=== PATIENT | male | born 1975 | race Caucasian/White ===

== ENCOUNTER 2016-07-12 08:00 | Outpatient (CLI) | payer OTHER | END 2016-07-12 23:59 | DX: N52.9 Male erectile dysfunction, unspecified (principal) ==

== ENCOUNTER 2017-06-12 08:00 | Outpatient (CLI) | payer OTHER ==
[2017-06-12 18:55] LABS: EOSINOPHILS % (AUTO) 2.2 %; HGB - HEMOGLOBIN 15.1 g/dL (14.0-18.0); LYMPHOCYTES % (AUTO) 21.5 %; MEAN CORPUSCULAR HGB CONC 32.9 g/dL (32.0-36.0); MEAN CORPUSCULAR VOLUME 91.3 fL (80.0-94.0); MEAN PLATELET VOLUME 9.8 fL (7.4-11.4); MONOCYTES % (AUTO) 6.1 %; NEUTROPHILS % (AUTO) 69.2 %; RED BLOOD COUNT 5.04 10^6/uL (4.70-6.10); RED CELL DISTRIBUTION WIDTH 13.2 % (12.0-15.0); UNCORRECTED WHITE BLOOD COUNT 8.3 x10^3/uL; WHITE BLOOD COUNT 8.3 x10^3/uL (4.8-10.8)
[2017-06-12 19:01] LABS: BAND NEUTROPHILS % (MANUAL) 0 %
[2017-06-12 19:17] LABS: ALBUMIN/GLOBULIN RATIO 1.4 (1.0-2.2); BILIRUBIN,TOTAL 0.4 mg/dL (0.2-1.0); BUN - BLOOD UREA NITROGEN 18 mg/dL (6-20); CALCIUM 9.4 mg/dL (8.5-10.3); CARBON DIOXIDE - CO2 23 mmol/L (21-32); CHLORIDE 107 mmol/L (101-111); CHOL/HDL RATIO 3.8 (<5.0); CHOLESTEROL 192 mg/dL; CREATININE 1.1 mg/dL (0.6-1.2); GFR - MDRD 73 (>89); GLUCOSE 92 mg/dL (70-100); HDL CHOLESTEROL 50 mg/dL; LDL/HDL RATIO 2.5 (<3.6); POTASSIUM 4.5 mmol/L (3.5-5.0); SODIUM 140 mmol/L (135-145); TOTAL PROTEIN 7.3 g/dL (6.7-8.2); TRIGLYCERIDES 92 mg/dL; VLDL CHOLESTEROL 18 mg/dL
[2017-06-12 19:33] LABS: EOSINOPHILS % (MANUAL) 2 %; LYMPHOCYTES % (MANUAL) 22 %; NEUTROPHILS % (MANUAL) 73 %; NP AUTO DIFFERENTIAL? YES; NP MAN DIFFERENTIAL? NO; PLATELET ESTIMATE, MANUAL NORMAL (130-450,000) (NORMAL); PLATELET MORPHOLOGY NORMAL APPEARANCE (NORMAL); TOTAL CELLS COUNTED 100
== END 2017-06-12 08:01 | disposition home or self-care (01) ==
LOC: LAB.WCP 08:00
PROVIDERS: ATTEND Physician Assistant Medical
DX: Z00.00 Encounter for general adult medical examination without abnormal findings (principal); Z12.5 Encounter for screening for malignant neoplasm of prostate
CPT/HCPCS: 36415; 80050; 80061; 84153

== ENCOUNTER 2018-03-06 09:38 | Day surgery (SDC) | payer OTHER ==
--- NOTE | 2018-03-06 11:23 | ED Physician Documentation ---
PD HPI LOWER EXT INJURY - Stated complaint Stated Complaint: LOWER LEFT LEG PX - Chief complaint Chief Complaint: Ext Problem - History obtained from History obtained from: Patient - History of Present Illness PD HPI LOW EXT INJURY LOCATION: Left, Lower leg, Ankle Type of injury: Fall (He injured himself on February 20 with a twisting fall of the ankle and had pain in the lower calf and heel. He was seen by his primary care and placed in a orthopedic boot. They are working on a referral for imaging. Diagnosis was Achilles injury. He has been walking with the boot and using some ibuprofen several times a day. He states it still hurts when he walks. Today he slid on some wet [place] with his injured foot extending out forward. He states it is hurting more now. He denies any other new injury.) Where injury occurred: Work Timing - onset: How many weeks ago (initial injury with worsening symptoms today) Timing - duration: Weeks Timing - details: Abrupt onset, Still present Worsened by: Moving, Palpating, Other (walking, even in boot) Associated symptoms: Weakness (for pushing foot down, since the initial injury.). No: Swelling, Discolored Contributing factors: No: Anticoagulated, Prior ortho surgery Similar symptoms before: Has not had sx before Recently seen: Clinic (after initial injury, seen by PCP) Review of Systems Constitutional: denies: Fever, Chills Nose: denies: Rhinorrhea / runny nose, Congestion Throat: denies: Sore throat Cardiac: denies: Chest pain / pressure, Palpitations Respiratory: denies: Dyspnea, Cough GI: denies: Abdominal Pain, Vomiting, Diarrhea Musculoskeletal: denies: Neck pain, Back pain Neurologic: reports: Focal weakness (left ankle for plantarflexion) Immunocompromised: denies: Immunocompromised PD PAST MEDICAL HISTORY - Past Medical History Past Medical History: Yes Cardiovascular: None Respiratory: None Neuro: None Endocrine/Autoimmune: None Psych: Depression - Past Surgical History Past Surgical History: Yes - Present Medications Home Medications: Ambulatory Orders Medication Instructions Recorded Confirmed Bupropion HCl [Wellbutrin] 300 mg PO 01/26/13 01/26/13 Topiramate [Topamax] 0 mg PO 03/06/18 busPIRone [Buspar] 0 mg 03/06/18 - Allergies Allergies/Adverse Reactions: Allergies Allergy/AdvReac Type Severity Reaction Status Date / Time bee venom protein (honey bee) Allergy Unknown Verified 03/06/18 09:49 - Social History Does the pt smoke?: No Smoking Status: Never smoker Does the pt drink ETOH?: No Does the pt have substance abuse?: No Substance Use and Type: Marijuana - Immunizations Immunizations are current?: Yes PD ED PE NORMAL - Vitals Vital signs reviewed: Yes - General General: Alert and oriented X 3, Well developed/nourished - Cardiac Cardiac: RRR, No murmur - Respiratory Respiratory: Clear bilaterally - Back Back: No CVA TTP - Derm Derm: Normal color, Warm and dry - Extremities Extremities: No edema - Neuro Neuro: No motor deficit, No sensory deficit, Other (left achilles area with softness but slight presence of Achilles. He can very weakly plantarflex. No swe lling nor bruising. seen. No bony tenderness. ) Results - Vitals Vitals: Vital Signs - 24 hr 03/06/18 09:44 Temperature 36.5 C Heart Rate 75 Respiratory 20 Rate Blood Pressure 124/73 O2 Saturation 97 Oxygen O2 Source Room air - Rads (name of study) left ankle Radiology: Prelim report reviewed PD MEDICAL DECISION MAKING - ED course Complexity details: considered differential (Likely high grade Achilles tear.), d/w patient, d/w organizational effectiveness consultant (Dr. Marx, [facility], who will see patient in the ER. ) - Sepsis Event Vital Signs: Vital Signs - 24 hr 03/06/18 09:44 Temperature 36.5 C Heart Rate 75 Respiratory 20 Rate Blood Pressure 124/73 O2 Saturation 97 Oxygen O2 Source Room air Departure - Departure Disposition: ED Transfer to [facility] Clinical Impression: Achilles rupture, left Qualifiers: Encounter type: initial encounter Qualified Code(s): S86.012A - Strain of left Achilles tendon, initial encounter Condition: Stable Record reviewed to determine appropriate education?: Yes
[2018-03-06] MEDS ORDERED: NAPROXEN 250 MG TABLET PO STA (11:38)
[2018-03-06] MEDS ORDERED: HYDROcod/ACETAM 5/325 MG TABLET PO STA (11:38)
[2018-03-06] MEDS ORDERED: SODIUM CHLORIDE 0.9% 1,000 ML IV ONE (12:10)
--- NOTE | 2018-03-06 12:25 | XRAY Report ---
Reason: achilles/posterior ankle pain Procedure Date: 03/06/2018 Accession Number: [id number] / [id number] Procedure: XR - Ankle 3 View LT CPT Code: FULL RESULT: EXAM: LEFT ANKLE RADIOGRAPHY EXAM DATE: 03/06/2018 12:06 PM. CLINICAL HISTORY: Achilles/posterior ankle pain. COMPARISON: None. TECHNIQUE: 3 views. FINDINGS: Bones: No acute fracture is seen. Small plantar calcaneal spur is noted. A longitudinally oriented lag screw is present in the fifth metatarsal and is partially visualized. Joints: Normal. No effusion. No subluxations. The ankle mortise is normally aligned. Soft Tissues: Normal. No soft tissue swelling. IMPRESSION: No evidence of acute osseous abnormality. RADIA
--- NOTE | 2018-03-06 12:28 | ANESTHESIA ---
Pre-Anesthesia VS, & Labs - Diagnosis Left ruptured achilles tendon - Procedure Repair ruptured Achilles tendon, left Vital Signs: Temp Pulse Resp BP Pulse Ox 36.5 C 75 20 124/73 97 03/06/18 09:44 03/06/18 09:44 03/06/18 09:44 03/06/18 09:44 03/06/18 09:44 Height 5 ft 11 in Weight (kg) 103.419 kg Body Mass Index 31.8 - NPO >8 hours Last Fluid Intake: Coffee at 0730 - Lab Results Lab results reviewed: No Home Medications and Allergies Home Medications: Ambulatory Orders Medication Instructions Recorded Confirmed Bupropion HCl [Wellbutrin] 300 mg PO 01/26/13 01/26/13 Topiramate [Topamax] 0 mg PO 03/06/18 busPIRone [Buspar] 0 mg 03/06/18 Allergies/Adverse Reactions: Allergies Allergy/AdvReac Type Severity Reaction Status Date / Time bee venom protein (honey bee) Allergy Unknown Verified 03/06/18 09:49 Anes History & Medical History - Anesthetic History Anesthesia Complications: reports: No previous complications Family history of Anesthesia Complications: Denies Family history of Malignant Hyperthermia: Denies - Medical History Cardiovascular: reports: None Pulmonary: reports: None Gastrointestinal: reports: GERD Urinary: reports: None Neuro: reports: None, Headaches Musculoskeletal: reports: None Endocrine/Autoimmune: reports: None Blood Disorders: reports: None Smoking Status: Never smoker Psychosocial: reports: No issues indicated - Surgical History Orthopedic: Other Exam General: Alert Dental: WNL Mouth Opening: Greater than 4 Fingerbreadths Neck Mobility: Normal Mallampati classification: I Thyromental Distance: greater than 6 cm Respiratory: Lungs clear Cardiovascular: Regular rate Mental/Cognitive Status: Alert/Oriented X3 Cognitive Status: Within normal limits Plan Anesthesia Type: General Consent for Procedure(s) Verified and Reviewed: Yes Code Status: Attempt Resuscitation ASA classification: 2-Mild systemic disease Is this case an emergency?: Yes
[2018-03-06 12:30] LABS: BASOPHILS # (AUTO) 0.1 10^3/uL (0.0-0.1); BASOPHILS % (AUTO) 0.8 %; EOSINOPHILS # (AUTO) 0.6 10^3/uL (0.0-0.7); EOSINOPHILS % (AUTO) 6.1 %; HGB - HEMOGLOBIN 14.6 g/dL (14.0-18.0); LYMPHOCYTES # (AUTO) 1.4 10^3/uL (1.5-3.5); LYMPHOCYTES % (AUTO) 13.9 %; MEAN CORPUSCULAR HEMOGLOBIN 31.4 pg (27.0-31.0); MEAN CORPUSCULAR VOLUME 89.7 fL (80.0-94.0); MEAN PLATELET VOLUME 8.8 fL (7.4-11.4); MONOCYTES # (AUTO) 0.5 10^3/uL (0.0-1.0); MONOCYTES % (AUTO) 5.5 %; NEUTROPHILS # (AUTO) 7.4 10^3/uL (1.5-6.6); NEUTROPHILS % (AUTO) 73.7 %; PLT - PLATELET COUNT 276 10^3/uL (130-450); RED BLOOD COUNT 4.65 10^6/uL (4.70-6.10)
--- NOTE | 2018-03-06 12:32 | PROVIDER PROGRESS NOTE ---
Subjective - Prog Note Date Prog Note Date: 03/06/18 Prog Note Time: 12:29 - Subjective Pt reports feeling: No change (Injury at work on 02/20/18 where he fell 2 feet off an I-beam, and ruptured his left Achilles tendon. Wishes open repair) Objective - Vital Signs/Intake & Output Vital Signs: Vital Signs x48h Temp Pulse Resp BP Pulse Ox 03/06/18 09:44 36.5 C 75 20 124/73 97 - Diagnostic Imaging Diagnostic Imaging Comments: XR: no acute ankle or calcaneal fractures - Other Results/Comments Other Results/Comments: EXAM: Mild left heel/calf swelling with palpable gap over Achilles tendon. + Donato sx. N/V ok distally except mild hypesthesia over posterior heel Assessment/Plan - Problem List (1) Achilles rupture, left Impression: PLAN: Options given. He wishes surgical repair LUZ. Last ate last PM. Black coffee at 0700. Risk and benefits of surgery explained, including reruture, infection, DVT. nerve damage, wound healing issues, etc. Questions answered. Consent signed. Leg marked. Qualifiers: Encounter type: initial encounter Qualified Code(s): S86.012A - Strain of left Achilles tendon, initial encounter
[2018-03-06 12:44] LABS: ALBUMIN 4.4 g/dL (3.2-5.5); ALBUMIN/GLOBULIN RATIO 1.2 (1.0-2.2); BILIRUBIN,TOTAL 0.9 mg/dL (0.2-1.0); CALCIUM 9.2 mg/dL (8.5-10.3)
[2018-03-06] MEDS ORDERED: BUPIVACAINE 0.25% PF 30 ML VIAL ONE (13:49)
[2018-03-06] MEDS ORDERED: BUPIVACAINE 0.25% PF 30 ML VIAL SUBQ ONE ×2 (14:49)
[2018-03-06] MEDS ORDERED: PROPOFOL 200 MG/20 ML VIAL IVP ONE (14:50)
[2018-03-06] MEDS ORDERED: KETOROLAC 30 MG/ML VIAL IVP ONE (14:50)
[2018-03-06] MEDS ORDERED: LIDOCAINE-MPF 2% 5 ML VIAL IM ONE (14:50)
[2018-03-06] MEDS ORDERED: SUCCINYLCHOLINE 200 MG/10 ML VIAL IVP ONE (14:50)
[2018-03-06] MEDS ORDERED: DEXAMETHASONE 4 MG/ML VIAL IVP ONE (14:50)
[2018-03-06] MEDS ORDERED: ACETAMINOPHEN 1,000 MG/100 ML 100 ML IV ONE (14:50)
[2018-03-06] MEDS ORDERED: LACTATED RINGERS 1,000 ML IV ONE ×2 (14:50→14:51)
[2018-03-06] MEDS ORDERED: MIDAZOLAM 2 MG/2 ML VIAL IVP ONE (14:50)
[2018-03-06] MEDS ORDERED: ROCURONIUM 50 MG/5 ML VIAL IVP ONE (14:50)
[2018-03-06] MEDS ORDERED: ceFAZolin 1 GM VIAL IV ONE (14:50)
[2018-03-06] MEDS ORDERED: fentaNYL 100 MCG/2 ML VIAL IVP ONE (14:50)
[2018-03-06] MEDS ORDERED: oxyCODONE 5 MG TABLET PO PRN (15:21)
[2018-03-06] MEDS ORDERED: HYDROmorphone 0.5 MG/0.5 ML SYRINGE IVP PRN (15:21)
[2018-03-06] MEDS ORDERED: ONDANSETRON 4 MG/2 ML VIAL IVP PRN (15:21)
--- NOTE | 2018-03-06 15:21 | Discharge Plan ---
Discharge Plan Disposition: 01 Home, Self Care Condition: Stable Diet: Regular Activity Restrictions: Additional Comments (Keep splinted leg elevated with pillows. Keep splint clean and dry. Crutch ambulate - Non weight bearing on left) Shower Restrictions: Yes (Keep splinted leg double sealed in plastic bags) Driving Restrictions: Yes (No driving) No Smoking: If you smoke, Please STOP! Call for help. Follow-up with: Martha Chacon PA-C [Primary Care Provider] -
[2018-03-06] MEDS ORDERED: HYDROmorphone 1 MG/ML CARPUJECT ONE (15:32)
--- NOTE | 2018-03-06 16:00 | OPERATIVE REPORT ---
DATE OF SERVICE: 03/06/2018 Physician: Adin Marx MD PREOPERATIVE DIAGNOSIS: Ruptured left Achilles tendon. POSTOPERATIVE DIAGNOSIS: Ruptured left Achilles tendon. PROCEDURE PERFORMED: Open repair of ruptured left Achilles tendon. SURGEON: Adin Marx MD ANESTHESIA: General. DESCRIPTION OF PROCEDURE: The patient was taken to the operating room on the afternoon of 03/06/2018 , where he was placed under general anesthetic in supine position without complications. We applied the thigh pneumatic tourniquet to the left leg. We then prepped and draped the leg free in the usual fashion for our procedure. After 30 seconds of gravity exsanguination of the limb, we inflated the thigh pneumatic tourniquet to 300 mmHg pressure. We then placed the left leg in a [id number] pos ition to allow access to the medial aspect of his left ankle. We then made a longitudinal skin incis ion approximately 1 cm anterior to the Achilles tendon, dissecting down to the ruptured tendon. We w ere able to visualize the ruptured tendon after we opened the paratenon sheath anteriorly. Next, usi ng a #2 Ethibond suture, we then placed a [place] Z-type stitch in the proximal portion of the ruptur ed tendon. Using the same suture, we then did a modified Blake-type stitch in the distal portion o f the ruptured tendon. Once these stitches had been placed in the appropriate portions of the ruptur ed tendon, we then were able to oppose the ruptured tendon together with the ankle placed into 20 deg emy of plantarflexion. We were able to oppose the ends by tightening our suture. Sutures were then tied holding the ruptured tendon in reduced position. We then placed several simple interrupted sti tches of 2-0 Vicryl to re-appose the incision in the paratenon sheath. 2-0 Vicryl was also used to c lose the subcutaneous tissues in a buried simple suture stitch. Finally, skin murphy used to approx imate the skin edges. We then washed the wound and applied Xeroform gauze, 4 x 4's, and a short leg posterior splint with the leg in gravity plantarflexion. It should be noted that we also used 20 mL of 0.25% Marcaine without epinephrine to provide incisional anesthesia. The tourniquet was then rele ased. He was then transferred onto his bed and taken to the recovery room in satisfactory condition. ESTIMATED BLOOD LOSS: 25 mL. REPLACEMENT: 800 mL crystalloid. INTRAOPERATIVE COMPLICATIONS: None. PLAN: The patient will be in a short leg posterior splint for the next 10 days. Keep the leg elevat ed. May ambulate with crutches, nonweightbearing on his extremity. He will followup in [facility] in about 2 weeks' time for application of a short leg gravity equinus cast and suture remov al as indicated. Would recommend him staying in a gravity equinus position for approximately 4-5 wee ks. At that time, we can work on staged casting, but we gradually bring him up to neutral position i n 2 cast changes. He would then have out of cast rehabilitation of his ankle performed at that time. TD: 03/06/2018 15:45
[2018-03-06] MEDS ORDERED: oxyCOD/ACETAMIN 5 MG/325 MG TABLET PO ONE ×2 (16:13→16:32)
[2018-03-06 17:05] VITALS: BP 132/78
== END 2018-03-06 12:43 | disposition home or self-care (01) ==
LOC: ED 09:38 → SDS 12:42
PROVIDERS: ATTEND Orthopaedic Surgery
PROC: 0LQP0ZZ Repair Left Lower Leg Tendon, Open Approach (ICD-10-PCS; principal; 2018-03-06 14:00)
DX: S86.012A Strain of left Achilles tendon, initial encounter (principal); W17.89XA Other fall from one level to another, initial encounter; Y93.H3 Activity, building and construction; Y92.69 Other specified industrial and construction area as the place of occurrence of the external cause; Y99.0 Civilian activity done for income or pay; F32.9 Major depressive disorder, single episode, unspecified; F41.9 Anxiety disorder, unspecified
CPT/HCPCS: 27650; 36415; 73610; 80053; 83690; 85025; 99283; 99284; A9270; J0131; J0330; J1170; J7120

== ENCOUNTER 2018-08-20 09:19 | Outpatient (CLI) | payer OTHER ==
--- NOTE | 2018-08-20 11:29 | XRAY Report ---
Reason: WHEEZING Procedure Date: 08/20/2018 Accession Number: [id number] / [id number] Procedure: WCP - Chest 2 View X-Ray CPT Code: 12926 FULL RESULT: EXAM: CHEST RADIOGRAPHY EXAM DATE: 08/20/2018 09:36 AM. CLINICAL HISTORY: Wheezing. COMPARISON: CHEST 2 VIEW PA/LAT 02/16/2016 2:32 PM. TECHNIQUE: 2 views. FINDINGS: Lungs/Pleura: No focal opacities evident. No pleural effusion. No pneumothorax. Normal volumes. Mediastinum: Heart and mediastinal contours are unremarkable. Other: None. IMPRESSION: Normal 2-view chest radiography. RADIA
== END 2018-08-20 09:20 | disposition home or self-care (01) ==
LOC: DI.WCP 09:19
PROVIDERS: ATTEND Nurse Practitioner
DX: R06.2 Wheezing (principal)
CPT/HCPCS: 71046

== ENCOUNTER 2021-08-30 09:17 | Outpatient (CLI) | payer OTHER ==
[2021-08-30 12:59] LABS: BASOPHILS # (AUTO) 0.1 10^3/uL (0.0-0.1); BASOPHILS % (AUTO) 0.9 %; EOSINOPHILS # (AUTO) 0.3 10^3/uL (0.0-0.7); EOSINOPHILS % (AUTO) 5.7 %; HCT - HEMATOCRIT 43.6 % (42.0-52.0); HGB - HEMOGLOBIN 15.1 g/dL (14.0-18.0); LYMPHOCYTES # (AUTO) 1.6 10^3/uL (1.5-3.5); LYMPHOCYTES % (AUTO) 29.4 %; MEAN CORPUSCULAR HEMOGLOBIN 32.1 pg (27.0-31.0); MEAN CORPUSCULAR HGB CONC 34.6 g/dL (32.0-36.0); MEAN CORPUSCULAR VOLUME 92.8 fL (80.0-94.0); MEAN PLATELET VOLUME 11.8 fL (7.4-11.4); MONOCYTES # (AUTO) 0.5 10^3/uL (0.0-1.0); MONOCYTES % (AUTO) 9.4 %; NEUTROPHILS # (AUTO) 2.9 10^3/uL (1.5-6.6); NEUTROPHILS % (AUTO) 53.5 %; PLT - PLATELET COUNT 273 10^3/uL (130-450); RED CELL DISTRIBUTION WIDTH 11.9 % (12.0-15.0); WHITE BLOOD COUNT 5.5 x10^3/uL (4.8-10.8)
[2021-08-30 13:26] LABS: ALBUMIN 4.1 g/dL (3.2-5.5); ALBUMIN/GLOBULIN RATIO 1.3 (1.0-2.2); ALKALINE PHOSPHATASE 44 IU/L (42-121); ALT ALANINE AMINOTRANSFERASE 16 IU/L (10-60); AST ASPARTATE AMINOTRANSFERASE 15 IU/L (10-42); BILIRUBIN,TOTAL 0.6 mg/dL (0.2-1.0); BUN - BLOOD UREA NITROGEN 28 mg/dL (6-20); CALCIUM 9.1 mg/dL (8.5-10.3); CARBON DIOXIDE - CO2 25 mmol/L (21-32); CHLORIDE 103 mmol/L (101-111); CHOL/HDL RATIO 4.2 (<5.0); CHOLESTEROL 218 mg/dL; CREATININE 1.1 mg/dL (0.6-1.2); GFR - MDRD 71 (>89); GLUCOSE 101 mg/dL (70-100); HDL CHOLESTEROL 52 mg/dL; LDL CHOLESTEROL,CALCULATED 146 mg/dL; LDL/HDL RATIO 2.8 (<3.6); POTASSIUM 4.5 mmol/L (3.5-5.0); SODIUM 136 mmol/L (135-145); THYROID STIMULATING HORMONE 1.86 uIU/mL (0.34-5.60); TOTAL PROTEIN 7.3 g/dL (6.7-8.2); TRIGLYCERIDES 98 mg/dL; VLDL CHOLESTEROL 20 mg/dL
== END 2021-08-30 09:18 | disposition home or self-care (01) ==
LOC: LAB.N 09:17
PROVIDERS: ATTEND Physician Assistant Medical
DX: Z00.00 Encounter for general adult medical examination without abnormal findings (principal); E78.5 Hyperlipidemia, unspecified; Z12.5 Encounter for screening for malignant neoplasm of prostate
CPT/HCPCS: 36415; 80053; 80061; 83721; 84153; 84443; 85025

== ENCOUNTER 2024-02-18 20:23 | Emergency (ER) | payer OTHER ==
--- NOTE | 2024-02-18 20:36 | ED Physician Documentation ---
PD HPI LOWER EXT INJURY - Stated complaint Stated Complaint: L FT LAC - Chief complaint Chief Complaint: Laceration - History obtained from History obtained from: Patient - Additional information Additional information: HPI from patient. Earlier tonight, patient was walking barefoot at home when he stepped on something with his right foot that got stuck to the bottom of his right foot; there is no pain associated with this but, when the patient brushed the bottom of his right foot across the top of his left foot to try to get the object to fall off of the foot, 8 turned out to be a piece of glass and this caused a laceration across the top of his left foot. He says he does not feel any foreig n body such as glass stuck in the left foot laceration, and that he was able to visualize the piece of glass and threw it out. He is up-to-date on tetanus. He denies numbness, weakness. PD PAST MEDICAL HISTORY - Past Medical History Past Medical History: No Cardiovascular: None Respiratory: None Neuro: None, Headaches Endocrine/Autoimmune: None GI: GERD : None Psych: Depression Musculoskeletal: None - Past Surgical History Past Surgical History: Yes Ortho: Other - Present Medications Home Medications: Ambulatory Orders Medication Instructions Recorded Confirmed Albuterol Sulfate [Proair Hfa 2 puffs INH Q4H PRN 03/06/18 03/06/18 Inhaler] Buspirone HCl 30 mg PO BID 03/06/18 03/06/18 Omeprazole [PriLOSEC] 20 mg PO QDAC 03/06/18 03/06/18 Sumatriptan Succ/Naproxen Sod 1 tab PO BID PRN 03/06/18 03/06/18 [Treximet 85-500 mg Tablet] Topiramate [Topamax] 50 mg PO DAILY 03/06/18 03/06/18 Topiramate [Topamax] 75 mg PO QPM 03/06/18 03/06/18 buPROPion HCL [Wellbutrin Xl] 300 mg PO DAILY 03/06/18 03/06/18 - Allergies Allergies/Adverse Reactions: Allergies Allergy/AdvReac Type Severity Reaction Status Date / Time bee venom protein (honey bee) Allergy Unknown Verified 02/18/24 20:28 - Social History Does the pt smoke?: No Smoking Status: Never smoker Does the pt drink ETOH?: No Does the pt have substance abuse?: No - Immunizations Immunizations are current?: Yes - POLST Patient has POLST: No PD ED PE NORMAL - Vitals Vital signs reviewed: Yes - General General: Alert and oriented X 3, No acute distress, Well developed/nourished - Neuro Neuro: No motor deficit, No sensory deficit (LTS intact left toes, FROM (flex/ext) left toes) PD ED PE EXPANDED - Extremities Feet visual: 1 - laceration (2 cm length) Results - Vitals Vitals: Oxygen O2 Source Room air Procedures - Laceration (location) Foot left Dorsal Length in cm: 2 Wound type: Linear, Into subcut fat, Clean Neurovascular status: Sensory intact, Motor intact, Vascular intact Tendon involvement: Tendon intact Anesthesia: Lidocaine 1% Wound preparation: Chlorhexadine, Irrigated copiously NS, Wound explored Skin layer closure: Nylon, Interrupted (one simple interrupted suture at distal end of wound (otherwise running suture)), Running, Size #-0 - enter number (4-0) Other: Patient tolerated well, No complications, Neurovascular intact, Dressing applied, Tetanus UTD PD Medical Decision Making - ED course Complexity details: considered differential, d/w patient ED course: Presents with left foot laceration no elements of the H&P to suggest retained foreign body. Wound is sutured as per procedure note, above. Advised to follow-up with PCP in 7-10 days for suture removal. Return precautions were reviewed. Departure - Departure Disposition: 01 Home, Self Care Clinical Impression: Laceration Condition: Good Instructions: ED Laceration Ext Sutr Stap Tape Comments: Follow up with your primary care provider in 7-10 days for removal of the stitches. Call when the office is next open to arrange for this appointment. Discharge Date/Time: 02/18/24 22:26
[2024-02-18] MEDS: LIDOCAINE 1% 2 ML VIAL SUBQ STA (21:28)
[2024-02-18] MEDS: BACITRACIN ZINC OINT 1 PACKET TOP STA (22:16)
[2024-02-18 22:29] VITALS: BP 124/68; O2SAT 99
== END 2024-02-18 22:26 | disposition home or self-care (01) ==
LOC: ED 20:23
DX: S91.312A Laceration without foreign body, left foot, initial encounter (principal); W25.XXXA Contact with sharp glass, initial encounter; Y93.01 Activity, walking, marching and hiking
CPT/HCPCS: 12001; 99282